=== PATIENT | male | born 1980 | race Two or more races ===

== ENCOUNTER 2020-05-10 17:20 | Emergency (ER) | payer SELFPAY ==
[~2020-05-10] VITALS: Ht 167.6 cm; Wt 68.0 kg
--- NOTE | 2020-05-10 17:57 | NUR ---
pt BIBA from street. Paramedics states pt was in street, refusing to move. pt had vodka with him, approx 2/3 consumed per ems. pt brought in for etoh intoxication. pt oriented to name and year. pt able to follow commands, talkative, distractible, slurred speech. pt denies pmh/psh. IV placed, blood drawn & sent, pt medicated per eMAR. pt unable to give urine sample at this time.
[2020-05-10] MEDS ORDERED: LORazepam Inj 2mg/ml 1ml IM ONE (18:00)
[2020-05-10 18:11] VITALS: BP 139/90
--- NOTE | 2020-05-10 18:11 | NUR ---
pt in bed. medicated per eMAR. vitals updated. pt yelling in bed, swearing. pt follows commands.
--- NOTE | 2020-05-10 18:29 | NUR ---
pt unable to give urine sample. pt able to stand with close assist due to etoh intoxication.
[2020-05-10 18:45] LABS: ANION GAP 12 mmol/L (5-15); BLOOD UREA NITROGEN 7 mg/dL (7-18); CALCIUM 9.1 MG/DL (8.5-10.1); CARBON DIOXIDE 28 MMOL/L (21-32); CHLORIDE 104 MMOL/L (98-107); POTASSIUM 4.1 MMOL/L (3.5-5.1); SODIUM 144 MMOL/L (136-145)
--- NOTE | 2020-05-10 18:49 | Emergency Room Report ---
History of Present Illness General Chief Complaint: Alcohol Intoxication Present Illness HPI 39-year-old male with no known past medical history brought in primarily due to alcohol intoxication. Patient is using derogatory language and is noncombative upon arrival. Could not obtain a good history as he is a poor historian due to alcohol intoxication. Appears to be stable with stable vital signs. (Devon Thomas) Allergies: Coded Allergies: No Known Allergies (Unverified , 05/10/20) COVID-19 Screening Contact w/high risk pt: No Experienced COVID-19 symptoms?: No COVID-19 Testing performed COST SPECIALIST: No (Devon Thomas) Patient History Past Medical History: see triage record Past Surgical History: none Pertinent Family History: none Social History: Reports: alcohol use Reviewed Nursing Documentation: PMH: Agreed; PSxH: Agreed (Devon Thomas) Review of Systems All Other Systems: negative except mentioned in HPI (Devon Thomas) Physical Exam Vital Signs Date Time Temp Pulse Resp B/P (MAP) Pulse Ox O2 Delivery O2 Flow Rate FiO2 05/10/20 17:15 98.4 100 16 141/89 (106) 100 Room Air 05/10/20 17:45 97 Sp02 EP Interpretation: reviewed, normal General Appearance: alert, GCS 15 Head: normocephalic, atraumatic Eyes: bilateral eye normal inspection, bilateral eye PERRL Neck: supple Respiratory: no retraction, no accessory muscle use Cardiovascular #1: no gallop, no murmur Gastrointestinal: soft, no mass, no organomegaly, no peritonitis Musculoskeletal: back normal Neurologic: alert, sensory intact Psychiatric: other - Intoxicated Skin: no rash Lymphatic: no adenopathy (Devon Thomas) Medical Decision Making PA Attestation All my diagnosis and treatment plans were reviewed ad discussed with my supervising physician Dr. Che (Devon Thomas) Diagnostic Impression: Primary Impression: Alcohol intoxication Qualified Codes: F10.920 - Alcohol use, unspecified with intoxication, uncomplicated ER Course 39-year-old male with no known past medical history brought in primarily due to alcohol intoxication. Patient is using derogatory language and is noncombative upon arrival. Could not obtain a good history as he is a poor historian due to alcohol intoxication. Appears to be stable with stable vital signs. Ddx considered but are not limited to: Alcohol intoxication with altered level of consciousness, alcohol intoxication causing pancreatitis, alcohol abuse, multi drug use and alcohol intoxication Vital signs: are WNL, pt. is afebrile H&PE are most consistent with: alcohol intoxication ORDERS: ETOH serum, CBC, CMP, UA ER intervention: NS bolus I signed the patient to Dr. Che at 7:30 PM (Devon Thomas) ER Course This patient was signed out to me. He presents with alcohol intoxication. He slept for several hours. More awake now. When he is more clinically sober, will discharge home. (Cleve Cobb MD) Last Vital Signs Date Time Temp Pulse Resp B/P (MAP) Pulse Ox O2 Delivery O2 Flow Rate FiO2 05/10/20 18:11 95 20 139/90 100 Room Air 05/10/20 17:45 97 05/10/20 17:15 98.4 (Devon Thomas) Status: improved (Cleve Cobb MD) Disposition: HOME, SELF-CARE Condition: Stable Referrals: NOT CHOSEN IPA/,REFERRING (PCP) Patient Instructions: Alcohol Intoxication, [id number] Additional Instructions: Abstain from alcohol. Follow-up with your doctor in 7 days. Return if worse. Devon Thomas May 10, 2020 18:49 Cleve Cobb MD May 10, 2020 22:18
[2020-05-10 18:53] LABS: ALANINE AMINOTRANSFERASE 48 U/L (12-78); ALBUMIN 4.3 G/DL (3.4-5.0); ALBUMIN/GLOBULIN RATIO 1.2 (1.0-2.7); ALKALINE PHOSPHATASE 87 U/L (46-116); ASPARTATE AMINO TRANSFERASE 46 U/L (15-37); BILIRUBIN,TOTAL 0.4 MG/DL (0.2-1.0)
[2020-05-10 19:10] LABS: BASOPHILS % (AUTO) 2.1 % (0.0-2.0); HEMATOCRIT 48.2 % (42.0-52.0); HEMOGLOBIN 14.9 G/DL (14.2-18.0); LYMPHOCYTES % (AUTO) 37.6 % (20.0-45.0); MEAN CORPUSCULAR VOLUME 93 FL (80-99); MONOCYTES % (AUTO) 8.9 % (1.0-10.0); NEUTROPHILS % (AUTO) 49.3 % (45.0-75.0); PLATELET COUNT 238 K/UL (150-450); RED BLOOD COUNT 5.21 M/UL (4.70-6.10); RED CELL DISTRIBUTION WIDTH 12.5 % (11.6-14.8); WHITE BLOOD COUNT 5.5 K/UL (4.8-10.8)
--- NOTE | 2020-05-10 19:15 | NUR ---
pt medicated per eMAR. pt refusing urine sample. pt resting in bed.
--- NOTE | 2020-05-10 19:18 | NUR ---
handoff pt care to christi rn.
--- NOTE | 2020-05-10 19:19 | NUR ---
report from ramy michaels. pt sleeing. arousable. v/s stable. pt in no distress. will continue to monitor pt.
--- NOTE | 2020-05-10 20:28 | NUR ---
ED Nurse Note: Collected urine and then sent to lab.
[2020-05-10 21:02] LABS: APPEARANCE,URINE CLEAR; BILIRUBIN, URINE NEGATIVE (NEGATIVE); COLOR,URINE PALE YELLOW; GLUCOSE, URINE (UA) NEGATIVE (NEGATIVE); KETONES,URINE NEGATIVE (NEGATIVE); LEUKOCYTE ESTERASE ,URINE NEGATIVE (NEGATIVE); NITRITE,URINE NEGATIVE (NEGATIVE); PH,URINE 6.5 (4.5-8.0); PROTEIN,URINE NEGATIVE (NEGATIVE); UROBILINOGEN,URINE NORMAL MG/DL (0.0-1.0)
--- NOTE | 2020-05-10 22:00 | NUR ---
pt sleeping on the cart. arousable. v/s stable. pt in no distress will continue to monitor pt closely.
--- NOTE | 2020-05-11 01:02 | NUR ---
IV SL removed, ID band removed, patient offered placement- refused, turtle neck and jacket given, food offered-declined, wanted to drink water only-given, patient discharged , left ambulatory with steady gait,no pain.DC instructions given-understood.
== END 2020-05-11 01:00 | disposition home or self-care (01) ==
LOC: EDBD 17:20 → EMR 18:09
DX: F10.129 Alcohol abuse with intoxication, unspecified (principal)
CPT/HCPCS: 36415; 80053; 80307; 81003; 85025; 96360; 96361; 96372; 99284; G0480; J7030